=== PATIENT | female | born 1950 | race Hispanic/Latino ===

== ENCOUNTER → 2024-04-09 | Outpatient (REF) | payer MEDICARE ==
[~2024-04-09] MED LIST: IOPAMIDOL 370 MG/ML 100 ML INFUS..BTL INJ ONE; SODIUM CHLORIDE 0.9% 250ML 250 ML ONE
[2024-04-09 13:13] LABS: CREATININE, SERUM 0.61 mg/dL (0.57-1.11)
== END ==
LOC: CT 12:04
PROVIDERS: ATTEND Urology
DX: R31.21 Asymptomatic microscopic hematuria (principal); N28.9 Disorder of kidney and ureter, unspecified; D41.01 Neoplasm of uncertain behavior of right kidney
CPT/HCPCS: 36415; 74178; 82565; 84520; J7050; Q9967

== ENCOUNTER 2024-06-21 05:00 | Inpatient (IN) | payer MEDICARE, OTHER ==
[2024-06-21] VITALS (22 sets, daily range): BP systolic 107–276; BP diastolic 38–268; PULSE 63–72; RESP 7–22; TEMP 97.9–98.8; O2SAT 92–100
[~2024-06-21] VITALS: Ht 162.6 cm; Wt 91.6 kg
[~2024-06-21 05:00] MED LIST changes: +ACETAMINOPHEN325 M1 PO; +ALBUTEROL0.63 MG/3 NEB; +AMLODIPINE BESYL5 MG PO; +ASPIRIN81 MG PO; +DIGOXIN125 MCG PO; +FAMOTIDINE20 MG PO; +FOLIC ACID0.4 MG PO; +FUROSEMIDE40 MG PO; +HUMALOG100 UNIT/1; +HYDROCODONE-ACET5 M1; -IOPAMIDOL 370 MG/ML 100 ML INFUS..BTL INJ ONE; +KLOR-CON20 MEQ; +LANTUS 3ML100 UNITS/; +LYRICA50 MG PO; +MAGNESIUM OXID400 MG PO; +METHOCARBAMOL750 MG PO; +METHOTREXATE2.5 MG PO; +METOPROLOL SUCC50 MG PO; +MULTI-VITAMIN1 EACH PO; +PRAVASTATIN SOD10 MG; +PREDNISONE10 MG PO; +SENOKOT-S TABL1 EACH PO; +SERTRALINE HCL100 MG PO; -SODIUM CHLORIDE 0.9% 250ML 250 ML ONE; +TRULICITY0.75 MG/0.; +VITAMIN C500 MG PO; +VOLTAREN ARTHRI20 GM
[2024-06-21 10:36] LABS: BASOPHILS % 0.3 % (0.0-1.0); EOSINOPHILS # (AUTO) 0.1 (0.0-0.4); HEMATOCRIT 38.2 % (34.2-44.1); HEMOGLOBIN 13.6 g/dL (12.0-16.0); LYMPHOCYTES # (AUTO) 1.7 (1.0-3.2); LYMPHOCYTES % 16.1 % (18.0-39.1); MEAN CORPUSCULAR HEMOGLOBIN 30.8 pg (28-32); MEAN CORPUSCULAR HGB CONC 35.6 g/dL (31-35); MEAN CORPUSCULAR VOLUME 86.6 fL (81-99); MONOCYTES # (AUTO) 0.6 (0.2-0.8); MONOCYTES % 5.7 % (4.4-11.3); NEUTROPHILS # (AUTO) 8.1 (2.1-6.9); NEUTROPHILS % 76.2 % (38.7-80.0); PLATELET COUNT 142 x10e3/uL (140-360); RED BLOOD COUNT 4.41 x10e6/uL (3.6-5.1); WHITE BLOOD COUNT 10.57 x10e3/uL (4.8-10.8)
[2024-06-21 11:12] LABS: ALBUMIN 2.9 g/dL (3.5-5.0); ALBUMIN/GLOBULIN RATIO 0.9 (0.8-2.0); ANION GAP 18.1 mmol/L (8-16); BILIRUBIN,TOTAL 0.7 mg/dL (0.2-1.2); CALCIUM 8.6 mg/dL (8.4-10.2); CREATININE, SERUM 0.5 mg/dL (0.57-1.11)
[2024-06-21 11:14] LABS: POTASSIUM 3.1 mmol/L (3.5-5.1)
[2024-06-21] MEDS: LACTATED RINGER'S 1,000 ML ONE (12:15)
[2024-06-21] MEDS: LEVOFLOXACIN 500MG/D5W 100ML 100 ML IV ONE (12:15)
[2024-06-21] MEDS ORDERED: SODIUM CHLORIDE 0.9% 250ML IRRIG IR SCH (14:00)
[2024-06-21] MEDS ORDERED: ONDANSETRON HCL INJ 2MG/ML 2ML 2 MG/ML VIAL IV PRN ×3 (14:00→18:45)
[2024-06-21] MEDS ORDERED: NALOXONE HCL INJ 0.4 MG/ML AMP IV PRN ×2 (14:00→15:30)
[2024-06-21] MEDS: SODIUM CHLORIDE 0.9% 250ML IRRIG IR SCH (15:30)
[2024-06-21] MEDS: MORPHINE SULFATE 1 MG/ML 30ML PCA IV PRN (16:30)
[2024-06-21 16:33] LABS: BASOPHILS % 0.3 % (0.0-1.0); EOSINOPHILS # (AUTO) 0.1 (0.0-0.4); EOSINOPHILS % 0.6 % (0.0-6.0); HEMOGLOBIN 12.3 g/dL (12.0-16.0); LYMPHOCYTES % 10.7 % (18.0-39.1); MEAN CORPUSCULAR HEMOGLOBIN 30.8 pg (28-32); MEAN CORPUSCULAR HGB CONC 35.1 g/dL (31-35); MEAN CORPUSCULAR VOLUME 87.5 fL (81-99); MONOCYTES # (AUTO) 0.3 (0.2-0.8); MONOCYTES % 2.6 % (4.4-11.3); NEUTROPHILS # (AUTO) 8.2 (2.1-6.9); NEUTROPHILS % 85.3 % (38.7-80.0); PLATELET COUNT 116 x10e3/uL (140-360); RED CELL DISTRIBUTION WIDTH 13.1 % (11.7-14.4); WHITE BLOOD COUNT 9.56 x10e3/uL (4.8-10.8)
[2024-06-21 16:49] LABS: CALCIUM 7.8 mg/dL (8.4-10.2); CREATININE, SERUM 0.56 mg/dL (0.57-1.11)
[2024-06-21] MEDS: HYDROMORPHONE 1MG/1ML INJ ONE (16:57)
[2024-06-21] MEDS ORDERED: ALBUTEROL SULF 0.083% NEB SOLN 3 ML NEB NEB PRN (17:00)
[2024-06-21] MEDS ORDERED: DEXTROSE 50% SYRINGE 50 ML IV PRN ×2 (17:00→18:45)
[2024-06-21] MEDS ORDERED: MUPIROCIN 2% OINT 22 GM TUBE TOP SCH (17:00)
[2024-06-21] MEDS: ONDANSETRON HCL INJ 2MG/ML 2ML 2 MG/ML VIAL ONE (17:13)
[2024-06-21] MEDS: MUPIROCIN 2% OINT 22 GM TUBE TOP SCH (18:27)
[2024-06-21] MEDS: SODIUM CHLORIDE 0.9% 1000ML 1,000 ML IV SCH (18:27)
[2024-06-21] MEDS: MAGNESIUM SULFATE 2GM/50ML 50 ML IV ONE (18:28)
[2024-06-21] MEDS: KCL 40MEQ/0.9% SOD CHL 1,000 ML IV SCH (19:36)
[2024-06-21] MEDS: MAGNESIUM SULFATE 2GM/50ML 50 ML IV SCH (20:16)
[2024-06-21] MEDS ORDERED: INSULIN REGULAR, HUMAN 100 UNIT/1 ML SQ SCH (21:00)
[2024-06-21] MEDS: INSULIN LISPRO 100 UNIT/1 ML 3ML VIAL SQ SCH (23:46)
[2024-06-22] VITALS (32 sets, daily range): BP systolic 88–146; BP diastolic 41–133; PULSE 63–82; RESP 9–22; TEMP 98–98.4; O2SAT 92–100
[2024-06-22] MEDS: ACETAMINOPHEN 1000 MG/100 ML IV PRN (05:14)
[2024-06-22 07:35] LABS: BASOPHILS % 0.2 % (0.0-1.0); EOSINOPHILS % 0.1 % (0.0-6.0); HEMATOCRIT 36.9 % (34.2-44.1); HEMOGLOBIN 12.7 g/dL (12.0-16.0); LYMPHOCYTES # (AUTO) 0.6 (1.0-3.2); LYMPHOCYTES % 4.7 % (18.0-39.1); MEAN CORPUSCULAR HEMOGLOBIN 31.7 pg (28-32); MEAN CORPUSCULAR HGB CONC 34.4 g/dL (31-35); MONOCYTES # (AUTO) 0.5 (0.2-0.8); MONOCYTES % 3.8 % (4.4-11.3); NEUTROPHILS # (AUTO) 11.6 (2.1-6.9); NEUTROPHILS % 90.7 % (38.7-80.0); PLATELET COUNT 147 x10e3/uL (140-360); RED BLOOD COUNT 4.01 x10e6/uL (3.6-5.1); RED CELL DISTRIBUTION WIDTH 13.4 % (11.7-14.4); WHITE BLOOD COUNT 12.74 x10e3/uL (4.8-10.8)
[2024-06-22 07:58] LABS: ANION GAP 15.6 mmol/L (8-16); CALCIUM 8.2 mg/dL (8.4-10.2); CREATININE, SERUM 0.69 mg/dL (0.57-1.11); POTASSIUM 4.6 mmol/L (3.5-5.1)
[2024-06-22 08:19] LABS: MAGNESIUM 2.5 MG/DL (1.3-2.1); PHOSPHORUS 4.1 MG/DL (2.3-4.7)
[2024-06-22 08:41] LABS: THYROID STIMULATING HORMONE 0.381 uIU/mL (0.350-4.940)
[2024-06-22] MEDS: LEVOFLOXACIN 250MG/D5W 50ML 50 ML IV SCH (13:53)
[2024-06-23] VITALS (23 sets, daily range): BP systolic 99–150; BP diastolic 19–86; PULSE 49–120; RESP 8–24; TEMP 98–98.6; O2SAT 93–99
[2024-06-23] MEDS: DIPHENHYDRAMINE HCL INJ 50 MG/ML VIAL IM PRN (04:27)
[2024-06-23 06:56] LABS: BASOPHILS % 0.3 % (0.0-1.0); EOSINOPHILS % 0.4 % (0.0-6.0); HEMOGLOBIN 11.5 g/dL (12.0-16.0); LYMPHOCYTES # (AUTO) 1.1 (1.0-3.2); LYMPHOCYTES % 10.4 % (18.0-39.1); MEAN CORPUSCULAR HGB CONC 32.9 g/dL (31-35); MEAN CORPUSCULAR VOLUME 94.3 fL (81-99); MONOCYTES # (AUTO) 0.7 (0.2-0.8); MONOCYTES % 6.9 % (4.4-11.3); NEUTROPHILS # (AUTO) 8.2 (2.1-6.9); NEUTROPHILS % 81.3 % (38.7-80.0); PLATELET COUNT 124 x10e3/uL (140-360); RED BLOOD COUNT 3.71 x10e6/uL (3.6-5.1); RED CELL DISTRIBUTION WIDTH 13.8 % (11.7-14.4); WHITE BLOOD COUNT 10.05 x10e3/uL (4.8-10.8)
[2024-06-23 07:39] LABS: ANION GAP 12.7 mmol/L (8-16); CALCIUM 8.2 mg/dL (8.4-10.2); CREATININE, SERUM 0.62 mg/dL (0.57-1.11); POTASSIUM 4.7 mmol/L (3.5-5.1)
[2024-06-23] MEDS: SODIUM CHLORIDE 0.45% 1,000 ML IV SCH (10:16)
[2024-06-23] MEDS: SENNA-S TABLET PO SCH (17:58)
[2024-06-23] MEDS: Morphine 2mg Syringe 2 MG/ML SYR IV PRN (21:48)
[2024-06-23] MEDS ORDERED: CYCLOBENZAPRINE HCL 10 MG TAB PO PRN (23:00)
[2024-06-23] MEDS ORDERED: ACETAMINOPHEN 325 MG TAB PO PRN (23:00)
[2024-06-24] VITALS (19 sets, daily range): BP systolic 116–159; BP diastolic 60–107; PULSE 67–130; RESP 11–22; TEMP 96.7–98.9; O2SAT 94–99
[2024-06-24 07:07] LABS: BASOPHILS % 0.4 % (0.0-1.0); EOSINOPHILS # (AUTO) 0.1 (0.0-0.4); EOSINOPHILS % 1.1 % (0.0-6.0); HEMOGLOBIN 11.7 g/dL (12.0-16.0); LYMPHOCYTES # (AUTO) 1.4 (1.0-3.2); MEAN CORPUSCULAR HEMOGLOBIN 30.8 pg (28-32); MEAN CORPUSCULAR HGB CONC 32.5 g/dL (31-35); MEAN CORPUSCULAR VOLUME 94.7 fL (81-99); MONOCYTES # (AUTO) 0.5 (0.2-0.8); MONOCYTES % 6.3 % (4.4-11.3); NEUTROPHILS % 74.5 % (38.7-80.0); PLATELET COUNT 122 x10e3/uL (140-360); RED CELL DISTRIBUTION WIDTH 13.6 % (11.7-14.4); WHITE BLOOD COUNT 8.05 x10e3/uL (4.8-10.8)
[2024-06-24 07:29] LABS: ANION GAP 12.1 mmol/L (8-16); CALCIUM 8.3 mg/dL (8.4-10.2); CREATININE, SERUM 0.59 mg/dL (0.57-1.11); POTASSIUM 4.1 mmol/L (3.5-5.1)
[2024-06-24] MEDS: INSULIN LISPRO 100 UNIT/1 ML 3ML VIAL SQ SCH (07:30)
[2024-06-24 07:48] LABS: MAGNESIUM 1.5 MG/DL (1.3-2.1); PHOSPHORUS 2.9 MG/DL (2.3-4.7)
[2024-06-24] MEDS: ACETAMINOPHEN/CODEINE 300MG - 30MG TAB PO PRN (08:45)
[2024-06-24] MEDS ORDERED: Morphine 2mg Syringe 2 MG/ML SYR IV PRN (08:45)
[2024-06-24] MEDS ORDERED: METHOCARBAMOL 500 MG TAB PO PRN (08:45)
[2024-06-24] MEDS: DIGOXIN 0.125 MG TAB PO SCH (09:28)
[2024-06-24] MEDS: PREGABALIN 50 MG CAP PO SCH (09:29)
[2024-06-24] MEDS: MAGNESIUM OXIDE 400 MG TAB PO SCH (09:29)
[2024-06-24] MEDS: METOPROLOL SUCCINATE 50 MG TAB XL PO SCH (09:29)
[2024-06-24] MEDS: SERTRALINE HCL 100 MG TAB PO SCH (21:02)
[2024-06-25] VITALS (11 sets, daily range): BP systolic 115–145; BP diastolic 48–106; PULSE 16–97; RESP 11–23; TEMP 97.1–99; O2SAT 80–100
[2024-06-25 06:56] LABS: BASOPHILS # (AUTO) 0.1 (0.0-0.1); BASOPHILS % 0.5 % (0.0-1.0); EOSINOPHILS # (AUTO) 0.1 (0.0-0.4); EOSINOPHILS % 1.3 % (0.0-6.0); HEMATOCRIT 36.9 % (34.2-44.1); HEMOGLOBIN 12.4 g/dL (12.0-16.0); LYMPHOCYTES # (AUTO) 1.7 (1.0-3.2); LYMPHOCYTES % 17.9 % (18.0-39.1); MEAN CORPUSCULAR HEMOGLOBIN 30.9 pg (28-32); MEAN CORPUSCULAR HGB CONC 33.6 g/dL (31-35); MONOCYTES # (AUTO) 0.7 (0.2-0.8); NEUTROPHILS % 72.6 % (38.7-80.0); PLATELET COUNT 146 x10e3/uL (140-360); RED BLOOD COUNT 4.01 x10e6/uL (3.6-5.1); RED CELL DISTRIBUTION WIDTH 13.4 % (11.7-14.4); WHITE BLOOD COUNT 9.64 x10e3/uL (4.8-10.8)
[2024-06-25 07:14] LABS: CALCIUM 8.3 mg/dL (8.4-10.2); CREATININE, SERUM 0.62 mg/dL (0.57-1.11)
[2024-06-26] VITALS (15 sets, daily range): BP systolic 102–130; BP diastolic 59–76; PULSE 64–110; RESP 15–20; TEMP 97.7–98; O2SAT 93–98
[2024-06-26] MEDS ORDERED: SENNA S TABLET1 EACH PO (09:40)
[2024-06-26] MEDS ORDERED: LEVOFLOXACIN250 MG PO (09:40)
== END 2024-06-26 22:41 | disposition other institution (70) | DRG 657 ==
LOC: OR 05:00 → PACU V 13:51 → ICU 17:16
PROVIDERS: ADMIT Urology; ATTEND Urology
PROC: 0UJH7ZZ Inspection of Vagina and Cul-de-sac, Via Natural or Artificial Opening (ICD-10-PCS; 2024-06-21)
PROC: 0T9B70Z Drainage of Bladder with Drainage Device, Via Natural or Artificial Opening (ICD-10-PCS; 2024-06-21)
PROC: 0TT00ZZ Resection of Right Kidney, Open Approach (ICD-10-PCS; principal; 2024-06-21 13:32)
DX: C64.1 Malignant neoplasm of right kidney, except renal pelvis (principal); I13.0 Hypertensive heart and chronic kidney disease with heart failure and stage 1 through stage 4 chronic kidney disease, or unspecified chronic kidney disease; I69.354 Hemiplegia and hemiparesis following cerebral infarction affecting left non-dominant side; I50.22 Chronic systolic (congestive) heart failure; N39.0 Urinary tract infection, site not specified; I48.20 Chronic atrial fibrillation, unspecified; B96.1 Klebsiella pneumoniae [K. pneumoniae] as the cause of diseases classified elsewhere; E11.42 Type 2 diabetes mellitus with diabetic polyneuropathy; E11.22 Type 2 diabetes mellitus with diabetic chronic kidney disease; N18.9 Chronic kidney disease, unspecified; I25.10 Atherosclerotic heart disease of native coronary artery without angina pectoris; E78.5 Hyperlipidemia, unspecified; M19.90 Unspecified osteoarthritis, unspecified site; E87.8 Other disorders of electrolyte and fluid balance, not elsewhere classified; I48.0 Paroxysmal atrial fibrillation; N39.46 Mixed incontinence; N31.9 Neuromuscular dysfunction of bladder, unspecified; N81.10 Cystocele, unspecified; N81.6 Rectocele; N95.2 Postmenopausal atrophic vaginitis; Z79.82 Long term (current) use of aspirin; E66.01 Morbid (severe) obesity due to excess calories; Z68.34 Body mass index [BMI] 34.0-34.9, adult; Z95.810 Presence of automatic (implantable) cardiac defibrillator; Z90.49 Acquired absence of other specified parts of digestive tract; Z88.0 Allergy status to penicillin; Z87.891 Personal history of nicotine dependence
CPT/HCPCS: 36415; 71045; 71046; 80048; 80053; 82948; 83036; 83735; 84100; 84443; 85025; 86850; 86900; 86920; 87086; 87186; 88300; 88307; 93005; 94799; 96372; 99252; J1171; J1200; J1956; J2270; J2405; J2470; J3475; J7030

== ENCOUNTER 2024-07-25 13:01 | Inpatient (IN) | payer MEDICARE ==
[~2024-07-25] VITALS: Ht 160 cm; Wt 94.3 kg
[~2024-07-25 13:01] MED LIST changes: +LEVOFLOXACIN250 MG PO; +SENNA S TABLET1 EACH PO
[2024-07-25] MEDS ORDERED: ACETAMINOPHEN 325 MG TAB PO PRN (13:15)
[2024-07-25] MEDS ORDERED: BISACODYL 10 MG SUPP PR PRN (13:15)
[2024-07-25] MEDS ORDERED: SODIUM CHLORIDE 0.9% 1000ML 1,000 ML IV SCH (13:15)
[2024-07-25] MEDS ORDERED: POLYETHYLENE GLYCOL 3350 17 GM PACK PO PRN (13:15)
[2024-07-25] MEDS ORDERED: HYDRALAZINE HCL 20 MG/ML VIAL IV PRN (13:15)
[2024-07-25] MEDS ORDERED: ONDANSETRON HCL INJ 2MG/ML 2ML 2 MG/ML VIAL IV PRN ×2 (13:15)
[2024-07-25 14:21] VITALS: BP 124/70; PULSE 94; RESP 18; TEMP 99.3
[2024-07-25] MEDS: METRONIDAZOLE 500MG/NS 100ML IV SCH (14:21)
[2024-07-25] MEDS: LEVOFLOXACIN 500MG/D5W 100ML IV SCH (14:21)
[2024-07-25] MEDS ORDERED: DEXTROSE 50% SYRINGE 50 ML IV PRN (14:30)
[2024-07-25 16:00] VITALS: BP 124/70; PULSE 94; RESP 18; TEMP 97.3; O2SAT 98
[2024-07-25] MEDS: INSULIN LISPRO 100 UNIT/1 ML 3ML VIAL SQ SCH (16:30)
[2024-07-25 16:56] LABS: BASOPHILS # (AUTO) 0.1 (0.0-0.1); BASOPHILS % 0.5 % (0.0-1.0); EOSINOPHILS # (AUTO) 0.2 (0.0-0.4); HEMATOCRIT 32.9 % (34.2-44.1); HEMOGLOBIN 10.8 g/dL (12.0-16.0); LYMPHOCYTES # (AUTO) 1.3 (1.0-3.2); LYMPHOCYTES % 12.2 % (18.0-39.1); MEAN CORPUSCULAR HEMOGLOBIN 29.6 pg (28-32); MEAN CORPUSCULAR HGB CONC 32.8 g/dL (31-35); MEAN CORPUSCULAR VOLUME 90.1 fL (81-99); MONOCYTES # (AUTO) 0.4 (0.2-0.8); MONOCYTES % 4.2 % (4.4-11.3); NEUTROPHILS # (AUTO) 8.3 (2.1-6.9); NEUTROPHILS % 79.7 % (38.7-80.0); PLATELET COUNT 236 x10e3/uL (140-360); RED BLOOD COUNT 3.65 x10e6/uL (3.6-5.1); RED CELL DISTRIBUTION WIDTH 13.4 % (11.7-14.4); WHITE BLOOD COUNT 10.36 x10e3/uL (4.8-10.8)
[2024-07-25 17:05] LABS: ALBUMIN 1.9 g/dL (3.5-5.0); ALBUMIN/GLOBULIN RATIO 0.6 (0.8-2.0); BILIRUBIN,TOTAL 0.3 mg/dL (0.2-1.2); CALCIUM 7.6 mg/dL (8.4-10.2); CREATININE, SERUM 0.57 mg/dL (0.57-1.11); MAGNESIUM 1.4 MG/DL (1.3-2.1); TOTAL PROTEIN 5.3 g/dL (6.5-8.1)
[2024-07-25 20:08] VITALS: BP 107/68; PULSE 89; RESP 20; TEMP 98.7; O2SAT 99
[2024-07-25 20:11] VITALS: BP 107/68; PULSE 89; RESP 20; TEMP 98.7; O2SAT 99
[2024-07-25] MEDS: INSULIN GLARGINE 100 UNITS/ML VIAL SQ SCH (20:18)
[2024-07-25] MEDS: HYDROCODONE/APAP 5MG-325MG TAB PO PRN (21:52)
[2024-07-25 23:21] VITALS: BP 127/62; PULSE 95; RESP 19; TEMP 98.9
[2024-07-26] VITALS (7 sets, daily range): BP systolic 99–131; BP diastolic 53–86; PULSE 56–102; RESP 16–20; TEMP 97.3–98.7; O2SAT 99–100
[2024-07-26] MEDS: SODIUM CHLORIDE 0.9% 250ML 250 ML ONE (08:45)
[2024-07-26] MEDS: DOCUSATE SODIUM 100 MG CAP PO SCH (08:47)
[2024-07-26] MEDS: SENNOSIDES 8.6 MG TAB PO SCH (08:48)
[2024-07-26] MEDS: ENOXAPARIN INJ 80 MG/0.8 ML SYR SC SCH (11:19)
[2024-07-26] MEDS: METOPROLOL SUCCINATE 50 MG TAB XL PO SCH (11:19)
[2024-07-26] MEDS: Morphine 2mg Syringe 2 MG/ML SYR IV PRN (16:43)
[2024-07-26] MEDS: DICLOFENAC SOD 1% GEL 100 GM TUBE TP SCH (21:22)
[2024-07-27] VITALS (7 sets, daily range): BP systolic 109–132; BP diastolic 52–66; PULSE 75–92; RESP 16–18; TEMP 97.5–97.7; O2SAT 99–100
[2024-07-27 08:39] LABS: BASOPHILS # (AUTO) 0.1 (0.0-0.1); BASOPHILS % 0.8 % (0.0-1.0); EOSINOPHILS # (AUTO) 0.3 (0.0-0.4); EOSINOPHILS % 2.7 % (0.0-6.0); HEMOGLOBIN 11.1 g/dL (12.0-16.0); LYMPHOCYTES # (AUTO) 1.3 (1.0-3.2); LYMPHOCYTES % 10.8 % (18.0-39.1); MEAN CORPUSCULAR HEMOGLOBIN 30.3 pg (28-32); MEAN CORPUSCULAR HGB CONC 33.6 g/dL (31-35); MEAN CORPUSCULAR VOLUME 90.2 fL (81-99); MONOCYTES # (AUTO) 0.5 (0.2-0.8); MONOCYTES % 4.6 % (4.4-11.3); NEUTROPHILS # (AUTO) 9.3 (2.1-6.9); NEUTROPHILS % 79.9 % (38.7-80.0); PLATELET COUNT 219 x10e3/uL (140-360); RED BLOOD COUNT 3.66 x10e6/uL (3.6-5.1); RED CELL DISTRIBUTION WIDTH 13.6 % (11.7-14.4); WHITE BLOOD COUNT 11.63 x10e3/uL (4.8-10.8)
[2024-07-27 09:07] LABS: ALBUMIN 2.1 g/dL (3.5-5.0); ALBUMIN/GLOBULIN RATIO 0.6 (0.8-2.0); ANION GAP 12.1 mmol/L (8-16); BILIRUBIN,TOTAL 0.4 mg/dL (0.2-1.2); CALCIUM 7.8 mg/dL (8.4-10.2); CREATININE, SERUM 0.58 mg/dL (0.57-1.11); MAGNESIUM 1.5 MG/DL (1.3-2.1); POTASSIUM 4.1 mmol/L (3.5-5.1); TOTAL PROTEIN 5.5 g/dL (6.5-8.1)
[2024-07-27 09:19] LABS: THYROID STIMULATING HORMONE 2.794 uIU/mL (0.350-4.940)
[2024-07-27] MEDS: PREGABALIN 50 MG CAP PO SCH (09:53)
[2024-07-27] MEDS: CALCIUM CARBONATE 500 MG CHEWABLE TABS PO SCH (09:57)
[2024-07-28 04:00] VITALS: BP 127/62; PULSE 96; RESP 18; TEMP 97.6; O2SAT 99
[2024-07-28 05:11] LABS: BASOPHILS # (AUTO) 0.1 (0.0-0.1); BASOPHILS % 0.7 % (0.0-1.0); EOSINOPHILS # (AUTO) 0.3 (0.0-0.4); EOSINOPHILS % 2.4 % (0.0-6.0); HEMATOCRIT 34.1 % (34.2-44.1); HEMOGLOBIN 11.4 g/dL (12.0-16.0); LYMPHOCYTES # (AUTO) 1.8 (1.0-3.2); LYMPHOCYTES % 15.2 % (18.0-39.1); MEAN CORPUSCULAR HEMOGLOBIN 29.9 pg (28-32); MEAN CORPUSCULAR HGB CONC 33.4 g/dL (31-35); MEAN CORPUSCULAR VOLUME 89.5 fL (81-99); MONOCYTES # (AUTO) 0.5 (0.2-0.8); MONOCYTES % 4.1 % (4.4-11.3); NEUTROPHILS # (AUTO) 8.9 (2.1-6.9); NEUTROPHILS % 76.5 % (38.7-80.0); PLATELET COUNT 213 x10e3/uL (140-360); RED BLOOD COUNT 3.81 x10e6/uL (3.6-5.1); RED CELL DISTRIBUTION WIDTH 13.7 % (11.7-14.4); WHITE BLOOD COUNT 11.58 x10e3/uL (4.8-10.8)
[2024-07-28 05:25] LABS: CALCIUM IONIZED 1.2 mmol/L (1.09-1.30)
[2024-07-28 05:45] LABS: ANION GAP 12.7 mmol/L (8-16); BLOOD UREA NITROGEN < 5 mg/dL (7-26); CALCIUM 7.9 mg/dL (8.4-10.2); CARBON DIOXIDE 20 mmol/L (22-29); CHLORIDE 110 mmol/L (98-107); CREATININE, SERUM 0.57 mg/dL (0.57-1.11); EST GLOMERULAR FILTRATION RATE 95 ML/MIN (>=60); GLUCOSE 97 mg/dL (74-118); MAGNESIUM 1.4 MG/DL (1.3-2.1); POTASSIUM 3.7 mmol/L (3.5-5.1); SODIUM 139 mmol/L (136-145)
[2024-07-28 05:47] LABS: BUN/CREATININE RATIO 9 (6-25)
[2024-07-28 08:12] VITALS: BP 127/62; PULSE 96; RESP 18; TEMP 97.6; O2SAT 99
[2024-07-28 08:21] VITALS: BP 109/58; PULSE 81; RESP 18; TEMP 97; O2SAT 97
[2024-07-28] MEDS: LOSARTAN POTASSIUM 25 MG TAB PO SCH (09:37)
[2024-07-28 12:47] VITALS: BP 111/47; PULSE 82; RESP 18; TEMP 97; O2SAT 98
[2024-07-28 16:16] VITALS: BP 103/84; PULSE 89; RESP 18; TEMP 97; O2SAT 99
[2024-07-28 20:00] VITALS: BP 135/75; PULSE 94; RESP 16; TEMP 97.7; O2SAT 99
[2024-07-29] VITALS (7 sets, daily range): BP systolic 112–145; BP diastolic 63–95; PULSE 88–100; RESP 16–20; TEMP 97–98.6; O2SAT 10–100
[2024-07-29 05:22] LABS: BASOPHILS # (AUTO) 0.1 (0.0-0.1); BASOPHILS % 0.7 % (0.0-1.0); EOSINOPHILS # (AUTO) 0.2 (0.0-0.4); EOSINOPHILS % 2.1 % (0.0-6.0); HEMATOCRIT 35.4 % (34.2-44.1); HEMOGLOBIN 11.5 g/dL (12.0-16.0); LYMPHOCYTES # (AUTO) 1.6 (1.0-3.2); MEAN CORPUSCULAR HGB CONC 32.5 g/dL (31-35); MEAN CORPUSCULAR VOLUME 92.4 fL (81-99); MONOCYTES # (AUTO) 0.4 (0.2-0.8); MONOCYTES % 4.8 % (4.4-11.3); NEUTROPHILS # (AUTO) 6.8 (2.1-6.9); NEUTROPHILS % 74.2 % (38.7-80.0); PLATELET COUNT 179 x10e3/uL (140-360); RED BLOOD COUNT 3.83 x10e6/uL (3.6-5.1); RED CELL DISTRIBUTION WIDTH 14.3 % (11.7-14.4); WHITE BLOOD COUNT 9.17 x10e3/uL (4.8-10.8)
[2024-07-29 05:49] LABS: ANION GAP 13.8 mmol/L (8-16); CALCIUM 7.8 mg/dL (8.4-10.2); CREATININE, SERUM 0.57 mg/dL (0.57-1.11); POTASSIUM 3.8 mmol/L (3.5-5.1)
[2024-07-29 05:49] LABS: ABG HCO3 22 mmol/L (22-26); ABG PCO2 35 mmHg (35-45); ABG PH 7.41 (7.35-7.45); ABG PO2 124 mmHg (80-105); ABG TCO2 23
[2024-07-29] MEDS ORDERED: IOPAMIDOL 370 MG/ML 100 ML INFUS..BTL INJ ONE (12:11)
[2024-07-29] MEDS: SODIUM CHLORIDE 0.9% 1000ML 1,000 ML IV SCH (12:19)
[2024-07-29] MEDS: MAGNESIUM SULFATE 2GM/50ML 50 ML IV ONE (21:36)
[2024-07-30] VITALS: BP 139/60; PULSE 83; RESP 18; TEMP 98.1; O2SAT 100
[2024-07-30 05:22] LABS: BASOPHILS # (AUTO) 0.1 (0.0-0.1); BASOPHILS % 0.7 % (0.0-1.0); EOSINOPHILS # (AUTO) 0.2 (0.0-0.4); EOSINOPHILS % 2.1 % (0.0-6.0); HEMATOCRIT 33.2 % (34.2-44.1); HEMOGLOBIN 10.8 g/dL (12.0-16.0); LYMPHOCYTES # (AUTO) 1.8 (1.0-3.2); LYMPHOCYTES % 16.4 % (18.0-39.1); MEAN CORPUSCULAR HEMOGLOBIN 29.7 pg (28-32); MEAN CORPUSCULAR HGB CONC 32.5 g/dL (31-35); MEAN CORPUSCULAR VOLUME 91.2 fL (81-99); MONOCYTES # (AUTO) 0.5 (0.2-0.8); MONOCYTES % 4.7 % (4.4-11.3); NEUTROPHILS % 74.8 % (38.7-80.0); PLATELET COUNT 199 x10e3/uL (140-360); RED BLOOD COUNT 3.64 x10e6/uL (3.6-5.1); RED CELL DISTRIBUTION WIDTH 14.3 % (11.7-14.4); WHITE BLOOD COUNT 10.73 x10e3/uL (4.8-10.8)
[2024-07-30 05:50] LABS: ANION GAP 10.3 mmol/L (8-16); CALCIUM 7.6 mg/dL (8.4-10.2); CREATININE, SERUM 0.58 mg/dL (0.57-1.11); MAGNESIUM 1.7 MG/DL (1.3-2.1)
[2024-07-30 05:52] LABS: POTASSIUM 3.3 mmol/L (3.5-5.1)
[2024-07-30 08:59] VITALS: BP 103/78; PULSE 89; RESP 18; TEMP 98.1; O2SAT 100
[2024-07-30] MEDS: POTASSIUM CHLORIDE 10MEQ EA PO ONE (10:53)
[2024-07-30] MEDS: MAGNESIUM SULFATE 2GM/50ML 50 ML IV ONE (10:53)
[2024-07-30] MEDS: LOSARTAN POTASSIUM 25 MG TAB PO SCH (10:54)
[2024-07-30] MEDS ORDERED: HYDRALAZINE HCL 20 MG/ML VIAL IV PRN (11:00)
[2024-07-30 12:16] VITALS: BP 134/33; PULSE 73; RESP 18; TEMP 97.5; O2SAT 100
[2024-07-30 17:13] VITALS: BP 114/66; PULSE 80; RESP 19; TEMP 97.5; O2SAT 99
[2024-07-30 20:00] VITALS: BP 130/64; PULSE 83; RESP 16; TEMP 98.7; O2SAT 100
[2024-07-31 06:32] LABS: BASOPHILS # (AUTO) 0.1 (0.0-0.1); BASOPHILS % 0.9 % (0.0-1.0); EOSINOPHILS # (AUTO) 0.3 (0.0-0.4); EOSINOPHILS % 3.3 % (0.0-6.0); HEMATOCRIT 35.5 % (34.2-44.1); HEMOGLOBIN 11.7 g/dL (12.0-16.0); LYMPHOCYTES # (AUTO) 1.9 (1.0-3.2); LYMPHOCYTES % 20.5 % (18.0-39.1); MEAN CORPUSCULAR HEMOGLOBIN 30.2 pg (28-32); MEAN CORPUSCULAR VOLUME 91.7 fL (81-99); MONOCYTES # (AUTO) 0.4 (0.2-0.8); MONOCYTES % 4.5 % (4.4-11.3); NEUTROPHILS # (AUTO) 6.6 (2.1-6.9); NEUTROPHILS % 69.5 % (38.7-80.0); PLATELET COUNT 202 x10e3/uL (140-360); RED BLOOD COUNT 3.87 x10e6/uL (3.6-5.1); RED CELL DISTRIBUTION WIDTH 14.9 % (11.7-14.4); WHITE BLOOD COUNT 9.41 x10e3/uL (4.8-10.8)
[2024-07-31 07:16] LABS: BILIRUBIN,TOTAL 0.3 mg/dL (0.2-1.2); CALCIUM 7.7 mg/dL (8.4-10.2); CREATININE, SERUM 0.62 mg/dL (0.57-1.11); TOTAL PROTEIN 5.4 g/dL (6.5-8.1)
[2024-07-31 07:28] LABS: ALBUMIN 2.1 g/dL (3.5-5.0); ALBUMIN/GLOBULIN RATIO 0.6 (0.8-2.0)
[2024-07-31 08:00] VITALS: BP 130/64; PULSE 83; RESP 16; TEMP 98.7; O2SAT 100
[2024-07-31 12:28] VITALS: BP 159/89; PULSE 69; RESP 16; TEMP 97.6; O2SAT 100
[2024-07-31] MEDS: METRONIDAZOLE 500 MG TAB PO SCH (14:45)
[2024-07-31] MEDS: APIXABAN 5 MG TABLET PO SCH (17:05)
[2024-07-31] MEDS: CIPROFLOXACIN 500 MG TAB PO SCH (17:05)
== END 2024-07-31 17:05 | DRG 863 ==
LOC: MED/SURG 13:01
PROVIDERS: ADMIT Internal Medicine; ATTEND Internal Medicine
PROC: 4A033R1 Measurement of Arterial Saturation, Peripheral, Percutaneous Approach (ICD-10-PCS; principal; 2024-07-28)
DX: K68.11 Postprocedural retroperitoneal abscess (principal); E87.20 Acidosis, unspecified; I69.351 Hemiplegia and hemiparesis following cerebral infarction affecting right dominant side; I50.22 Chronic systolic (congestive) heart failure; N13.30 Unspecified hydronephrosis; Q60.0 Renal agenesis, unilateral; I11.0 Hypertensive heart disease with heart failure; E11.51 Type 2 diabetes mellitus with diabetic peripheral angiopathy without gangrene; E11.42 Type 2 diabetes mellitus with diabetic polyneuropathy; D64.9 Anemia, unspecified; I25.10 Atherosclerotic heart disease of native coronary artery without angina pectoris; I48.0 Paroxysmal atrial fibrillation; E78.2 Mixed hyperlipidemia; K76.0 Fatty (change of) liver, not elsewhere classified; N71.9 Inflammatory disease of uterus, unspecified; K52.9 Noninfective gastroenteritis and colitis, unspecified; N31.9 Neuromuscular dysfunction of bladder, unspecified; M06.9 Rheumatoid arthritis, unspecified; K59.00 Constipation, unspecified; K43.9 Ventral hernia without obstruction or gangrene; N95.2 Postmenopausal atrophic vaginitis; E66.812 Obesity, class 2; Z68.36 Body mass index [BMI] 36.0-36.9, adult; R16.1 Splenomegaly, not elsewhere classified; R32 Unspecified urinary incontinence; G47.30 Sleep apnea, unspecified; R53.81 Other malaise; Z79.4 Long term (current) use of insulin; Z79.85 Long-term (current) use of injectable non-insulin antidiabetic drugs; Z95.810 Presence of automatic (implantable) cardiac defibrillator; Z87.440 Personal history of urinary (tract) infections; Z85.528 Personal history of other malignant neoplasm of kidney; Z90.5 Acquired absence of kidney; Z88.0 Allergy status to penicillin; Z83.3 Family history of diabetes mellitus; Z82.49 Family history of ischemic heart disease and other diseases of the circulatory system
CPT/HCPCS: 36415; 71045; 74018; 74177; 76770; 80048; 80053; 82805; 82948; 83036; 83605; 83735; 83880; 84443; 85025; 87040; 87071; 87205; 93976; 96372; 99252; J1650; J1815; J1956; J2270; J2543; J3475; J7030; J7050; Q9967